=== PATIENT | male | born 1995 | race Caucasian/White ===

== ENCOUNTER 2023-10-04 02:09 | Emergency (ER) | payer OTHER, SELFPAY ==
[2023-10-04 02:15] VITALS: BP 141/73; PULSE 93; RESP 16; TEMP 36.9; O2SAT 97; BMI 39.5
--- NOTE | 2023-10-04 02:22 | XRR_ITS ---
PROCEDURE INFORMATION: Exam: XR Right Knee Exam date and time: 10/04/2023 2:40 AM Age: 28 years old Clinical indication: Pain; Knee; Right TECHNIQUE: Imaging protocol: Radiologic exam of the right knee. Views: 3 views. COMPARISON: No relevant prior studies available. FINDINGS: Bones/joints: No acute fracture or dislocation is noted. The skeletal structures seem age-appropriate. Moderate-sized effusion. Soft tissues: Unremarkable. XR/XR knee RT 3V* [id number] IMPRESSION: No acute osseous findings.
--- NOTE | 2023-10-04 02:37 | W.ED.EXTPRO ---
HPI - Extremity Problem General: Chief complaint: Extremity Problem,Nontraumatic Stated complaint: Right knee injury Time Seen by Provider: 10/04/23 02:17 History of Present Illness: Patient presents to the ER with complaints of right knee pain and swelling. Patient has no known trauma. 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 He has been doing this for about 7 months. About a week ago he noticed his legs starting to swell when he crawled out of a pipe. And since then has gotten worse. He has been using ibuprofen and ice and elevation and is no longer helping. Patient has not had any knee pain before. PFS ED PFSH: Social History Smoking and tobacco/nicotine status: current every day tobacco/nicotine user smokeless tobacco Physical Exam Const: COMMON NORMALS: no acute distress, average body habitus, patient oriented x3, no limitations, healthy appearing, alert and well nourished Neck/C-Spine: COMMON NORMALS: no JVD Chest: COMMONS NORMALS: normal inspection of the chest and normal palpation of entire chest wall Resp: COMMON NORMALS: normal respiratory effort, No retractions, No use of accessory muscles and clear to auscultation bilaterally AUSCULTATION: clear to auscultation bilaterally Cardio: COMMON NORMALS: no JVD, regular rate, regular rhythm, S1 normal heart sound present, S2 normal heart sound present, No gallops present (Cardio), No clicks present (Cardio), No murmurs present (Cardio) and No rub (Cardio) RATE: regular rate RHYTHM: regular rhythm HEART SOUNDS: S1 normal heart sound present and S2 normal heart sound present GI: COMMON NORMALS: Normal to inspection, nondistended, normoactive bowel sounds present, Soft to palpation, non-tender, No hepatosplenomegaly present and no masses PALPATION: Yes Soft to palpation and Yes No hepatosplenomegaly present Extremity: NARRATIVE EXTREMITY EXAM: Right knee swollen, mildly tender to palpate throughout but worse infrapatellar in the joint line. Good range of motion, negative anterior posterior drawer test Neuro: COMMON NORMALS: patient oriented x3 SENSORIUM/ORIENTATION: Yes alert Course Vital Signs: Vital signs: Vital Signs Temperature 98.5 F 10/04/23 02:15 Pulse Rate 93 10/04/23 02:15 Respiratory Rate 16 10/04/23 02:15 Blood Pressure 141/73 10/04/23 02:15 Pulse Oximetry 97 10/04/23 02:15 Oxygen Delivery Me thod Room Air 10/04/23 02:15 MDM - Extremity (Nontraumatic) Medical Decision Making X-ray was obtained which is preliminary read off by myself is negative. Patient does have swelling to the knee. This was discussed with the patient he may have some bursitis. Patient be placed on meloxicam and discharged home. Differential Diagnosis Unlikely herpes zoster, gout, cellulitis, superficial thrombophlebitis, deep venous thrombosis of upper extremity, lower extremity edema or deep vein thrombosis of lower extremity Medical Records I reviewed the patient's medical records. Lab Data I reviewed the patient's lab results. All radiology interpretation(s) finalized by discharge Discharge Plan Discharge Patient Disposition: Home Clinical Impression: Acute pain of right knee Condition: Stable Prescriptions: New meloxicam 7.5 mg tablet 7.5 mg PO .Twice daily Qty: 14 0RF Discharge Orders: Discharge ED (Routine); Ordered 10/04/23 Ordered By: Sonido Linares Patient Instructions: Knee Pain (ED), Swollen Joint (ED) Activity Restrictions/Additional Instructions: Your x-rays performed in the ER were read off as negative preliminarily by the ER physician. The radiologist will be reading them later today if they see anything different you will get a call. Otherwise continue to take the meloxicam from the prescription prescribed by the ER physician, please continue to elevate your knee and ice it as needed. If you are still having problems Coding Level of Care Code ED Dietary Internship for Destiney Vaca
[2023-10-04 03:30] VITALS: BP 118/61; PULSE 94; RESP 14; O2SAT 95
[2023-10-04 04:30] VITALS: BP 109/70; PULSE 85; RESP 14; O2SAT 97
[2023-10-04 05:00] VITALS: BP 130/82; PULSE 84; RESP 13; O2SAT 95
== END 2023-10-04 05:21 | disposition home or self-care (01) ==
PROVIDERS: Emergency Provider Emergency Medicine
DX: M25.561 Pain in right knee (principal); F17.220 Nicotine dependence, chewing tobacco, uncomplicated
CPT/HCPCS: 73562; 99283

== ENCOUNTER → 2023-12-27 13:29 | Outpatient (BNVA) | payer OTHER, SELFPAY | PROVIDERS: PCP Family Medicine; Visit Provider Student in an Organized Health Care Education/Training Program | DX: M25.861 Other specified joint disorders, right knee | CPT/HCPCS: 73560; 73565 ==